=== PATIENT | female | born 1940 | race Caucasian/White ===

== ENCOUNTER → 2018-10-06 09:48 | Outpatient (CLI) | payer MEDICARE, SELFPAY ==
--- NOTE | 2018-10-06 09:52 | MR_ITS ---
MR head/brain wo con HISTORY: Altered mental status, altered level of consciousness, confusion, disorientation ITS.REASON: SUNDOWNING, PARKINSONISM, DEMENTIA ORDERING PHYSICIAN: Bernardo Gr MD PATIENT AGE: 77 years Comparison: None TECHNIQUE: Standard multiplanar multiecho sequences are performed without contrast. FINDINGS: There is moderate generalized atrophy with mild periventricular and subcortical T2 white matter hyperintensities noted consistent with ischemic gliotic change from microvascular disease. No midline shift, mass effect, intracranial hemorrhage, or hydrocephalus. The cerebellopontine angles, cerebellum, and brainstem are unremarkable. There is partial in the sella. Canal stenosis is noted at the C1-C2 level of 9 mm without cord compression. There is now fluid level in the right aspect of the sphenoid sinus and there is mucosal thickening of the ethmoid sinuses. No mastoid effusion. IMPRESSION: 1. Moderate generalized atrophy with periventricular ischemic gliotic change. 2. Paranasal sinus disease
--- NOTE | 2018-10-06 10:39 | CT_ITS ---
CT lung screening EXAM: CT LUNG LOW DOSE WO CONTRAST HISTORY: 30 pack-year smoking history ITS.REASON: H/O NICOTINE DEPENDENCE ORDERING PHYSICIAN: Bernardo Gr MD PATIENT AGE: 77 years COMPARISON: None TECHNIQUE: The exam was performed on a GE Light Speed [address] scanner using 2.90 mGy CTDI. A low dose helical CT CHEST was performed on a multi-detector scanner. All CT scans at the facility use one or more dose reduction, viz: automated exposure control, ma/kV adjustment per patient size (including targeted exams where dose is matched to indication, i.e. head), or iterative reconstruction technique. The LDCT was performed in a facility that meets the criteria for the screening program. Data regarding this exam was submitted to [employer] which is an approved registry. The order for this exam indicates that it came as a result of a lung cancer screening counseling shard decision-making visit that included all the elements required of such a visit including smoking cessation. The radiologist interpreting this exam meets the CMS criteria for the LDCT lung cancer screening program. The exam is reported using the Lung-RADS classification scale and reported to the [employer] registry. NOTE: This study was performed for the specific purposes of lung cancer screening and is not an alternative to diagnostic chest CT. RADIATION DOSE: CTDI vol(CT dose Index-volume) = 2.90mG DLP (Dose Length Product) = 99.77 mGcm FINDINGS: Coronary artery calcifications Cholelithiasis Enlarged left adrenal gland which may be due to adenomatous involvement 3 mm noncalcified nodule right upper lobe anteriorly 4 mm nodule right perihilar region in the minor fissure area Scattered fibrotic changes Old granulomatous disease 5 mm noncalcified nodule right upper lobe IMPRESSION: 1. Lung RADS Category: 3, probably benign 2. Other findings: Cholelithiasis, coronary artery calcifications RECOMMENDATIONS: [address] follow-up
== END ==
PROVIDERS: PCP Family Medicine; Visit Provider Family Medicine
DX: Z12.2 Encounter for screening for malignant neoplasm of respiratory organs (principal); Z87.891 Personal history of nicotine dependence; F05 Delirium due to known physiological condition; F03.91 Unspecified dementia, unspecified severity, with behavioral disturbance; G20 Parkinson's disease
CPT/HCPCS: 70551

== ENCOUNTER → 2020-09-04 12:58 | Outpatient (POV) | payer MEDICARE, SELFPAY | PROVIDERS: Visit Provider Dermatology | DX: Z00.00 Encounter for general adult medical examination without abnormal findings (principal) ==

== ENCOUNTER → 2021-09-16 13:43 | Outpatient (CLI) | payer OTHER, SELFPAY ==
[2021-09-16 13:59] LABS: Microscopic, Urine URINE MICROSCOPIC (MICROSCOPIC)
[2021-09-16 14:04] LABS: Appearance,Urine SL CLOUDY (Clear); Bilirubin,Urine Negative (Negative); Blood, Urine Negative (Negative); Color,Urine YELLOW (Yellow); Glucose,Urine (UA) Negative (Negative); Ketones,Urine Negative (Negative); Leukocyte Esterase,Urine 1+ (Negative); Nitrate,Urine POSITIVE (Negative); Protein,Urine Negative (Negative); Specific Gravity, Urine 1.015 (1.005-1.030); Urobilinogen,Urine 0.2 EU/dl (0.2)
[2021-09-16 14:17] LABS: Bacteria,Urine 4+ /lpf; Transitional Epi Cells,Urine OCC #/lpf (0-3)
== END ==
PROVIDERS: Visit Provider Family Medicine Hospice and Palliative Medicine
DX: N39.0 Urinary tract infection, site not specified (principal); B96.1 Klebsiella pneumoniae [K. pneumoniae] as the cause of diseases classified elsewhere
CPT/HCPCS: 81001; 87086; 87088; 87186

== ENCOUNTER → 2021-10-09 16:39 | Outpatient (CLI) | payer MEDICARE, SELFPAY | PROVIDERS: PCP Family Medicine Hospice and Palliative Medicine; Visit Provider Family Medicine Hospice and Palliative Medicine | DX: G31.1 Senile degeneration of brain, not elsewhere classified (principal); F02.81 Dementia in other diseases classified elsewhere, unspecified severity, with behavioral disturbance ==

== ENCOUNTER → 2021-10-10 14:13 | Outpatient (CLI) | payer OTHER, SELFPAY ==
[2021-10-10 14:41] LABS: Microscopic, Urine URINE MICROSCOPIC (MICROSCOPIC)
[2021-10-10 14:53] LABS: Appearance,Urine CLEAR (Clear); Blood, Urine 3+ (Negative); Color,Urine YELLOW (Yellow); Glucose,Urine (UA) Negative (Negative); Ketones,Urine Negative (Negative); Leukocyte Esterase,Urine 2+ (Negative); Nitrate,Urine Negative (Negative); Protein,Urine 1+ (Negative); Specific Gravity, Urine 1.025 (1.005-1.030); Urobilinogen,Urine 0.2 EU/dl (0.2)
[2021-10-10 14:58] LABS: Bilirubin,Urine Negative (Negative)
[2021-10-10 16:17] LABS: Bacteria,Urine 2+ /lpf; WBC,Urine 20-50 #/hpf (0-3)
== END ==
PROVIDERS: Visit Provider Internal Medicine
DX: F05 Delirium due to known physiological condition (principal); N39.0 Urinary tract infection, site not specified; B96.29 Other Escherichia coli [E. coli] as the cause of diseases classified elsewhere
CPT/HCPCS: 81001; 87086; 87088; 87186